=== PATIENT | male | born 1990 | race African-American/Black ===

== ENCOUNTER 2017-10-30 02:42 | Emergency (ER) | payer SELFPAY ==
[2017-10-30] MEDS ORDERED: Metoclopramide HCl 10 MG/2 ML VIAL ONE (03:19)
[2017-10-30] MEDS ORDERED: diphenhydrAMINE 50 MG/ML VIAL ONE (03:19)
[2017-10-30] MEDS ORDERED: Acetaminophen 500 MG TAB ONE (03:19)
[2017-10-30] MEDS ORDERED: Ketorolac Tromethamine 30 MG/ML VIAL ONE (04:28)
[2017-10-30] MEDS ORDERED: Dexamethasone 10 MG/ML VIAL ONE (04:28)
--- NOTE | 2017-10-30 07:39 | CT ---
PRELIMINARY REPORT/[facility]/EMERGENCY AFTER HOURS PROCEDURE: EXAM: CT Head Without Intravenous Contrast EXAM DATE/TIME: 10/30/2017 3:21 AM CLINICAL HISTORY: 27 years old, male; Pain; Headache; Patient HX: 27 yo m presents to ed with headache. PT reports head ache started suddenly 3 days ago. PT denies n/v, denies double vision, denies trouble walking. PT rep orts photophobia and phonophobia. TECHNIQUE: Axial computed tomography images of the head/brain without intravenous contrast. COMPARISON: No relevant prior studies available. FINDINGS: Brain: Normal. No hemorrhage. No significant white matter disease. No edema. Ventricles: Normal. No ventriculomegaly. Bones/joints: Normal. No acute fracture. Sinuses: Normal as visualized. No acute sinusitis. Mastoid air cells: Normal as visualized. No mastoid effusion. Soft tissues: Normal. IMPRESSION: No acute findings. Thank you for allowing us to participate in the care of your patient. Dictated and Authenticated by: Chong Henning MD 10/30/2017 3:38 AM Central Time ([place] & [place]) FINAL REPORT HEAD CT WITHOUT CONTRAST: Date: 10/30/17 COMPARISON: None. HISTORY: Sudden onset of headache. FINDINGS: I agree with the preliminary report given by Ellen. Imaged paranasal sinuses/mastoid air cells well aerated. No displaced calvarial fracture, intracrania l hemorrhage, midline shift, or mass effect. IMPRESSION: No acute findings. POS: [facility]
== END 2017-10-30 05:10 | disposition home or self-care (01) ==
LOC: ERS 02:42
DX: R51 Headache (principal); F32.9 Major depressive disorder, single episode, unspecified; F17.210 Nicotine dependence, cigarettes, uncomplicated; Z71.6 Tobacco abuse counseling
CPT/HCPCS: 70450; 96365; 96375; 99406; J1100; J1200; J1885; J2765

== ENCOUNTER 2017-11-24 12:48 | Emergency (ER) | payer SELFPAY ==
[2017-11-24] MEDS ORDERED: Ondansetron ODT 4 MG TAB ONE (13:13)
[2017-11-24 13:37] LABS: #Eosinphils 0.1 thou/uL (0.0-0.7); #Lymphocytes 1.4 thou/uL (1.20-3.40); #Monocytes 0.4 thou/uL (0.11-0.59); %Basophils 0.6 % (0.0-1.0); %Eosinophils 2.6 % (0.0-10.0); %Lymphocytes 28.6 % (21.0-51.0); %Monocytes 8.1 % (0.0-10.0); %Neutrophils 60.1 % (42.0-75.0); Hemoglobin 14.7 g/dL (14.0-18.0); Mean Corpuscular HGB CONC 34.4 g/dL (32.0-36.0); Mean Corpuscular Hemoglobin 30.6 pg (27.0-31.0); Mean Platelet Volume 6.7 fL (7.4-10.4); Platelet Count 215 thou/uL (130-400); RBC Distribution Width 12.8 % (11.5-14.5); White Blood Cell (WBC) Count 4.9 thou/uL (4.8-10.8)
[2017-11-24 14:02] LABS: ALT (SGPT) 25 U/L (8-55); AST (SGOT) 34 U/L (5-34); Albumin 4.4 g/dL (3.5-5.0); Alkaline Phosphatase 80 U/L (40-150); Anion Gap 13 mmol/L (10-20); BUN (Urea Nitrogen) 14 mg/dL (8.9-20.6); Bilirubin, Total 0.6 mg/dL (0.2-1.2); Calc. Creatinine Clearance 0 mL/min (70-130); Calcium 9.6 mg/dL (7.8-10.44); Carbon Dioxide 26 mmol/L (22-29); Chloride 106 mmol/L (98-107); Estimated GFR-MDRD Greater than 90; Glucose 88 mg/dL (70-105); Lipase 35 U/L (8-78); Potassium 4.1 mmol/L (3.5-5.1); Protein, Total 7.4 g/dL (6.0-8.3); Sodium 141 mmol/L (136-145)
== END 2017-11-24 14:33 | disposition home or self-care (01) ==
LOC: ERS 12:48
DX: R11.2 Nausea with vomiting, unspecified (principal); F32.9 Major depressive disorder, single episode, unspecified; F17.210 Nicotine dependence, cigarettes, uncomplicated
CPT/HCPCS: 80053; 83690; 85025; 99284; Q0162

== ENCOUNTER 2019-03-29 12:37 | Emergency (ER) | payer SELFPAY | END 2019-03-29 14:00 | disposition home or self-care (01) | LOC: ERS 12:37 | DX: J20.9 Acute bronchitis, unspecified (principal); J45.901 Unspecified asthma with (acute) exacerbation; F31.9 Bipolar disorder, unspecified; F17.210 Nicotine dependence, cigarettes, uncomplicated | CPT/HCPCS: 94640; J7620 ==

== ENCOUNTER 2020-07-08 09:22 | Emergency (ER) | payer OTHER, SELFPAY ==
[2020-07-08 12:24] LABS: SARS-CoV-2 PCR by NAA Not Detected (NotDetected)
== END 2020-07-08 11:45 | disposition left against medical advice (07) ==
LOC: ERS 09:22
DX: Z53.21 Procedure and treatment not carried out due to patient leaving prior to being seen by health care provider (principal); Z20.828 Contact with and (suspected) exposure to other viral communicable diseases
CPT/HCPCS: 87635; U0003; U0005

== ENCOUNTER 2020-11-24 14:02 | Emergency (ER) | payer SELFPAY | END 2020-11-24 15:37 | disposition home or self-care (01) | LOC: ERS 14:02 | DX: J30.9 Allergic rhinitis, unspecified (principal); F17.210 Nicotine dependence, cigarettes, uncomplicated; F17.220 Nicotine dependence, chewing tobacco, uncomplicated | CPT/HCPCS: 99281 ==

== ENCOUNTER 2021-12-14 16:23 | Emergency (ER) | payer OTHER, SELFPAY ==
[2021-12-14] MEDS ORDERED: Ondansetron PF 4 MG/2 ML Vial ONE (16:36)
[2021-12-14] MEDS ORDERED: Ketorolac Tromethamine 30 MG/ML VIAL ONE (16:36)
[2021-12-14 17:03] LABS: Mean Corpuscular HGB CONC 33.5 g/dL (32.0-36.0); Mean Corpuscular Hemoglobin 30.9 pg (27.0-31.0); Mean Corpuscular Volume 92.2 fL (78.0-98.0); Mean Platelet Volume 6.9 fL (7.4-10.4); Platelet Count 176 thou/uL (130-400); RBC Distribution Width 12.4 % (11.5-14.5); Red Blood Cell (RBC) Count 4.85 mill/uL (4.70-6.10); White Blood Cell (WBC) Count 4.7 thou/uL (4.8-10.8)
[2021-12-14 17:18] LABS: Lymphocytes 6 % (21-51); MDiff Complete? YES; Monocytes 15 % (0-10); Neutrophil 73 % (42-75); Platelet Morphology Comment Appears Adequate; Polychromasia SLIGHT = 2-3 cells (100X) (0-2/hpf); Reactive Lymphocytes 6 % (0-10)
[2021-12-14 17:28] LABS: ALT (SGPT) 29 U/L (8-55); AST (SGOT) 26 U/L (5-34); Albumin 4.3 g/dL (3.5-5.0); Alkaline Phosphatase 60 U/L (40-110); Anion Gap 13 mmol/L (10-20); BUN (Urea Nitrogen) 12 mg/dL (8.9-20.6); Bilirubin, Total 0.4 mg/dL (0.2-1.2); CK (CPK) 405 U/L (30-200); Calc. Creatinine Clearance 0 mL/min (70-130); Calcium 9.3 mg/dL (7.8-10.44); Carbon Dioxide 25 mmol/L (22-29); Chloride 103 mmol/L (98-107); Estimated GFR 88; Globulin 2.9 g/dL (2.4-3.5); Glucose 68 mg/dL (70-105); Magnesium 1.9 mg/dL (1.6-2.6); Potassium 3.6 mmol/L (3.5-5.1); Protein, Total 7.2 g/dL (6.0-8.3); Sodium 137 mmol/L (136-145)
[2021-12-14 19:06] LABS: Bilirubin Negative (Negative); Blood, Urine Negative (Negative); Clarity Clear (Clear); Glucose, Urine (Dipstick) Normal (Negative); Ketone, Urine Negative (Negative); Leukocyte Negative Leu/uL (Negative); Nitrite Negative (Negative); Protein, Urine (Dipstick) Negative (Neg-Trace); Specific Gravity, Urine 1.012 (1.002-1.036); Urobilinogen Normal mg/dL (Less than 2); pH, Urine 6.5 (5.0-9.0)
[2021-12-14 19:12] LABS: SARS-CoV-2 NAA Rapid Test DETECTED (NotDetected)
== END 2021-12-14 18:49 | disposition home or self-care (01) ==
LOC: ERS 16:23
DX: U07.1 COVID-19 (principal); T67.9XXA Effect of heat and light, unspecified, initial encounter; F17.220 Nicotine dependence, chewing tobacco, uncomplicated; X30.XXXA Exposure to excessive natural heat, initial encounter; Y92.69 Other specified industrial and construction area as the place of occurrence of the external cause
CPT/HCPCS: 36415; 80053; 81003; 82550; 83735; 85025; 94760; J1885; J2405

== ENCOUNTER 2021-12-17 16:56 | Emergency (ER) | payer SELFPAY ==
[2021-12-17] MEDS ORDERED: Ondansetron ODT 4 MG TAB ONE (17:33)
[2021-12-17] MEDS ORDERED: Acetaminophen 500 MG TAB ONE (17:39)
== END 2021-12-17 17:38 | disposition home or self-care (01) ==
LOC: ERS 16:56
DX: U07.1 COVID-19 (principal); R11.2 Nausea with vomiting, unspecified
CPT/HCPCS: 99283; Q0162